=== PATIENT | male | born 1995 | race Caucasian/White ===

== ENCOUNTER 2024-07-14 18:17 | Emergency (ER) | payer OTHER ==
[~2024-07-14] VITALS: Ht 182.9 cm; Wt 109.1 kg
[2024-07-14 18:23] VITALS: TEMP 98.2
[2024-07-14 22:50] VITALS: BP 139/84; PULSE 85; RESP 18; O2SAT 99
[2024-07-15 06:07] LABS: HEPATITIS C AB (EIA) Non Reactive (Non Reactive)
== END 2024-07-14 23:16 | disposition home or self-care (01) ==
LOC: EMS 18:17
DX: Z77.21 Contact with and (suspected) exposure to potentially hazardous body fluids (principal); E11.9 Type 2 diabetes mellitus without complications; W44.9XXA Unspecified foreign body entering into or through a natural orifice, initial encounter; Y93.89 Activity, other specified; Y92.89 Other specified places as the place of occurrence of the external cause; Y99.0 Civilian activity done for income or pay
CPT/HCPCS: 84460; 86706; 86803; 87340; 99283